=== PATIENT | female | born 1965 | race Caucasian/White ===

== ENCOUNTER 2016-12-03 08:16 | Emergency (ER) | payer MEDICAID ==
[2016-12-03 09:21] VITALS: BP 122/56
[2016-12-03] MEDS ORDERED: Potassium Chloride 20 MEQ Tab.ER PO ONE (09:27)
--- NOTE | 2016-12-03 09:52 | CT ---
INDICATION: Mental status changes, right-sided tingling for two weeks. CT HEAD WITHOUT CONTRAST: Serial contiguous 2.5 and 5 mm sections were obtained through the brain without contrast 12/03/2016 and compared with 2014, revealing no significant interval change, shift of midline structures, ventricular abnormalities, abnormal areas of density, including no evidence of hemorrhage or hematoma. Visualized paranasal sinuses and mastoid air cells were well-aerated. No definite cranial abnormality was seen. IMPRESSION: Normal CT brain. No evidence of an acute intracranial abnormality or significant interval change compared with 01/21/2015 examination. Total exam DLP = 845.81 mGy-cm. MTDD
--- NOTE | 2016-12-03 09:53 | EDM.PDOC ---
[id number] POSSIBLE STOKE Time Seen by Provider: 12/03/16 08:20 Source: Reports: Patient History Limitations: Reports: No limitations - History of Present Illness INITIAL COMMENTS - FREE TEXT/NARRATIVE: 51 years old w f came to the ed this am due due to multiple medical issues, like numbness r arm, moving to the neck, hot flashes, neck numbness, low back pain. Pt stated she does not feel like herself since she had a lumbar puncture in September 2016. Pt is a daily smoker, has occ diarrhea, has a h/o low potassium. She denied trauma. She c/o for a gen rash with itching in the past 4- 5 months for which was seen by her pmd. Vistaril was applied, which did not help. Symptom Onset Date: 09/08/16 Symptom Onset Time: 07:00 Timing/Duration: Reports: Week(s):, Intermittent Location (Neuro Complaint): Reports: generalized Quality (Neuro Complaint): Reports: numbness, tingling, altered sensation Severity: mild Improves with: Reports: None Worsens with: Reports: None Associated symptoms: Reports: headaches, other (occ confusions) - Related Data Allergies/ADRs: Allergies Allergy/AdvReac Type Severity Reaction Status Date / Time metronidazole [From Flagyl] Allergy Fainting Verified 12/03/16 08:27 Home Meds: Home Meds Cyclobenzaprine [Flexeril] 10 mg PO TID PRN 06/17/14 [History] Hydrocodone/Acetaminophen [[place] 10-325] 1 ea PO Q6H PRN 06/17/14 [History] Omeprazole [priLOSEC OTC] 20 mg PO DAILY 06/17/14 [History] Triamterene/Hydrochlorothiazid [Triamterene-HCTZ 37.5-25 MG] 1 tab PO DAILY 06/21 [History] Gabapentin [Gabapentin] 600 mg PO TID PRN 01/21/15 [History] LORazepam 1 mg PO DAILY PRN 12/03/16 [History] Levofloxacin [Levaquin] 500 mg PO Q24H 12/03/16 [History] hydrOXYzine Pamoate [Hydroxyzine Pamoate] 25 mg PO DAILY 12/03/16 [History] Past Medical History Other Cardiovascular History: is on fluid pill Other OB/BYN History: breast implant bilat Social & Family History - Tobacco Use Smoking Status *Q: Current Every Day Smoker Years of Tobacco use: 30 Packs/Tins Daily: 1 Used Tobacco, but Quit: No Second Hand Smoke Exposure: Yes - Caffeine Use Caffeine Use: Reports: Coffee, Soda - Alcohol Use Days Per Week of Alcohol Use: 1 Number of Drinks Per Day: 0 Total Drinks Per Week: 0 - Recreational Drug Use Recreational Drug Use: No ED ROS GENERAL - Review of Systems Review Of Systems: See Below Constitutional: Reports: malaise HEENT: Reports: Other (bad mouthtaste) Respiratory: Reports: No Symptoms Cardiovascular: Reports: No symptoms Endocrine: Reports: no symptoms GI/Abdominal: Reports: No symptoms : Reports: no symptoms Musculoskeletal: Reports: no symptoms Skin: Reports: rash (4 months) Neurological: Reports: Confusion (occ), Numbness, Paresthesia Psychiatric: Reports: No symptoms Hematologic/Lymphatic: Reports: no symptoms Immunologic: Reports: no symptoms ED EXAM, NEURO - Physical Exam Exam: See Below Exam Limited By: No limitations General Appearance: alert, WD/WN, mild distress Eye Exam: bilateral eye: normal inspection Ears: normal external exam, normal canal, hearing grossly normal Nose: normal inspection, normal mucosa, no blood Throat/Mouth: Normal inspection, Normal lips, Normal teeth, Normal gums Head Exam: atraumatic, normocephalic Neck: normal inspection Respiratory/Chest: no respiratory distress, lungs clear, normal breath sounds Cardiovascular: normal peripheral pulses, regular rate, rhythm, no edema GI/Abdominal: normal bowel sounds, soft, non tender, no distention (Female) Exam: Deferred Rectal (Female) Exam: Deferred Neurological: alert, normal mood/affect, normal dorsiflexion Back Exam: normal inspection, full range of motion Extremities: normal inspection, normal range of motion, non-tender, no pedal edema Psychiatric: anxious (pt needed to go for a smoke while waiting for test results ) Skin Exam: Warm, Dry, Intact Course - Vital Signs Text/Narrative:: 51 years old w f came to the ed this am due due to multiple medical issues, like numbness r arm, moving to the neck, hot flashes, neck numbness, low back pain. Pt stated she does not feel like herself since she had a lumbar puncture in September 2016. Pt is a daily smoker, has occ diarrhea, has a h/o low potassium. She denied trauma. She c/o for a gen rash with itching in the past 4- 5 months for which was seen by her pmd. Vistaril was applied, which did not help. PE: No acute physical findings Labs: potassium was 3.3, UDS Pos for opiates, pt is Hydrocodon. Imaging: CT head NAD Impression: Hypokalemia, gen paesthesia, unspecified, can not R/O menopausal symptoms Tx: Potassium 40meq Reexam: improved Plan: D/C home with instructions Last Recorded V/S: Last Vital Signs Temp 36.3 C 12/03/16 08:20 Pulse 91 12/03/16 08:20 Resp 18 12/03/16 08:20 BP 122/56 L 12/03/16 08:20 Pulse Ox 100 12/03/16 08:20 - Orders/Labs/Meds Labs: Laboratory Tests 12/03/16 12/03/16 12/03/16 Range/Units 08:35 08:35 08:45 WBC 13.6 H (4.5-12.0) X10-3/uL RBC 4.80 (3.23-5.20) x10(6)uL Hgb 14.9 (11.5-15.5) g/dL Hct 44.3 (30.0-51.3) % MCV 92.3 (80-96) fL MCH 31.1 (27.7-33.6) pg MCHC 33.6 (32.2-35.4) g/dL RDW 12.9 (11.5-15.5) % Plt Count 273 (125-369) X10(3)uL MPV 8.3 (7.4-10.4) fL Neut % (Auto) 84.7 H (46-82) % Lymph % (Auto) 8.3 L (13-37) % [place] % (Auto) 6.3 (4-12) % Eos % (Auto) 0 L (1.0-5.0) % Baso % (Auto) 0 (0-2) % Neut # (Auto) 11.5 H (1.6-8.3) # Lymph # (Auto) 1.1 (0.6-5.0) # [place] # (Auto) 0.9 (0.0-1.3) # Eos # (Auto) 0.1 (0.0-0.8) # Baso # (Auto) 0.0 (0.0-0.2) # PT (8.7-11.1) INR (0.89-1.13) Sodium (135-145) mmol/L Potassium (3.5-5.3) mmol/L Chloride (100-110) mmol/L Carbon Dioxide (23-29) mmol/L BUN (5-20) mg/dL Creatinine (0.6-1.3) mg/dL Est Cr Clr Drug Dosing Estimated GFR (MDRD) (>60) BUN/Creatinine Ratio (9-20) Glucose (80-116) mg/dL Calcium (8.6-10.2) mg/dL Urine Color Yellow (YELLOW) Urine Appearance Clear (CLEAR) Urine pH 6.0 (5.0-6.5) Ur Specific [place] 1.010 (1.010-1.025) Urine Protein Negative (NEGATIVE) mg/dL Urine Glucose (UA) Normal (NEGATIVE) mg/dL Urine Ketones Negative (NEGATIVE) mg/dL Urine Occult Blood Negative (NEGATIVE) Urine Nitrite Negative (NEGATIVE) Urine Bilirubin Negative (NEGATIVE) Urine Urobilinogen Normal (NEGATIVE) mg/dL Ur Leukocyte Esterase Negative (NEGATIVE) Urine RBC Not seen (0) Urine WBC 0-5 (0) Ur Squamous Epith Cells Few H (NS,R,O) Urine Bacteria Rare H (NS) Urine Opiates Screen Positive H (NEGATIVE) Ur Oxycodone Screen Negative (NEGATIVE) Ur Propoxyphene Screen Negative (NEGATIVE) Ur Barbituates Screen Negative (NEGATIVE) Ur Tricyclics Screen Negative (NEGATIVE) Ur Phencyclidine Scrn Negative (NEGATIVE) Ur Amphetamine Screen Negative (NEGATIVE) Urine MDMA Screen Negative (NEGATIVE) U Benzodiazepines Scrn Negative (NEGATIVE) U Cocaine Metab Screen Negative (NEGATIVE) U Marijuana (THC) Screen Negative (NEGATIVE) 12/03/16 12/03/16 Range/Units 08:45 08:45 WBC (4.5-12.0) X10-3/uL RBC (3.23-5.20) x10(6)uL Hgb (11.5-15.5) g/dL Hct (30.0-51.3) % MCV (80-96) fL MCH (27.7-33.6) pg MCHC (32.2-35.4) g/dL RDW (11.5-15.5) % Plt Count (125-369) X10(3)uL MPV (7.4-10.4) fL Neut % (Auto) (46-82) % Lymph % (Auto) (13-37) % [place] % (Auto) (4-12) % Eos % (Auto) (1.0-5.0) % Baso % (Auto) (0-2) % Neut # (Auto) (1.6-8.3) # Lymph # (Auto) (0.6-5.0) # [place] # (Auto) (0.0-1.3) # Eos # (Auto) (0.0-0.8) # Baso # (Auto) (0.0-0.2) # PT 10.5 (8.7-11.1) INR 1.04 (0.89-1.13) Sodium 138 (135-145) mmol/L Potassium 3.3 L (3.5-5.3) mmol/L Chloride 101 (100-110) mmol/L Carbon Dioxide 33 H (23-29) mmol/L BUN 9 (5-20) mg/dL Creatinine 0.8 (0.6-1.3) mg/dL Est Cr Clr Drug Dosing TNP Estimated GFR (MDRD) > 60 (>60) BUN/Creatinine Ratio 11.3 (9-20) Glucose 133 H (80-116) mg/dL Calcium 9.2 (8.6-10.2) mg/dL Urine Color (YELLOW) Urine Appearance (CLEAR) Urine pH (5.0-6.5) Ur Specific [place] (1.010-1.025) Urine Protein (NEGATIVE) mg/dL Urine Glucose (UA) (NEGATIVE) mg/dL Urine Ketones (NEGATIVE) mg/dL Urine Occult Blood (NEGATIVE) Urine Nitrite (NEGATIVE) Urine Bilirubin (NEGATIVE) Urine Urobilinogen (NEGATIVE) mg/dL Ur Leukocyte Esterase (NEGATIVE) Urine RBC (0) Urine WBC (0) Ur Squamous Epith Cells (NS,R,O) Urine Bacteria (NS) Urine Opiates Screen (NEGATIVE) Ur Oxycodone Screen (NEGATIVE) Ur Propoxyphene Screen (NEGATIVE) Ur Barbituates Screen (NEGATIVE) Ur Tricyclics Screen (NEGATIVE) Ur Phencyclidine Scrn (NEGATIVE) Ur Amphetamine Screen (NEGATIVE) Urine MDMA Screen (NEGATIVE) U Benzodiazepines Scrn (NEGATIVE) U Cocaine Metab Screen (NEGATIVE) U Marijuana (THC) Screen (NEGATIVE) Meds: Medications Discontinued Medications Generic Name Dose Route Start Last Admin Trade Name Freq PRN Reason Stop Dose Admin Potassium Chloride 40 meq 12/03/16 09:27 12/03/16 09:48 Klor-Con M20 PO 12/03/16 09:28 40 meq ONETIME ONE Administration Departure - Departure Time of Disposition: 10:03 Disposition: Home, Self-Care 01 Condition: good Clinical Impression: Hypokalemia Referrals: Maricel Reagan MD [Primary Care Provider] - Forms: ED Department Discharge Additional Instructions: Please take 40meq at 2 pm, please get the potassium level checked on Friday. Please f/u with neurology and or PMD. Please come back to the ed if your symptoms acutely worsen.
== END 2016-12-03 10:10 | disposition home or self-care (01) ==
LOC: FB.ED 08:16
DX: E87.6 Hypokalemia (principal); R20.9 Unspecified disturbances of skin sensation; F17.210 Nicotine dependence, cigarettes, uncomplicated; Z88.1 Allergy status to other antibiotic agents; Z79.899 Other long term (current) drug therapy
CPT/HCPCS: 36415; 70450; 80048; 80305; 81001; 85025; 85610; 99284; A9270

== ENCOUNTER 2016-12-12 07:30 | Day surgery (SDC) | payer MEDICAID ==
[~2016-12-12 07:30] MED LIST: Lactated Ringers 1,000 ML IV SCH; Sodium Chloride 0.9% 10 ML Syringe FLUSH PRN
--- NOTE | 2016-12-12 09:48 | PCM.HPR ---
H & P Addendum review - H & P Addendum Review Date of Original H & P: 12/12/16 Date Reviewed: 12/12/16 Time Reviewed: 09:30 Patient was examined: No Changes (H&P from 12/06 reviewed. Cardiac and Pulm ROS was neg. Pt does experience what I believe is chest tightness from her anxiety. EKG form last month and today is normal. Lungs are clear, Heart is RRR. She is cleared to proceed with procedure)
[2016-12-12] MEDS ORDERED: Midazolam 1 MG/ML 2 ML SDV IV ONE (09:50)
[2016-12-12] MEDS ORDERED: Propofol 200 MG/20 ML SDV IV ONE (09:50)
[2016-12-12] MEDS ORDERED: Lidocaine 2% 100 MG/5 ML Syringe IVPUSH ONE (09:50)
--- NOTE | 2016-12-12 10:32 | PCM.OPNOTE ---
- General Post-Op/Procedure Note Date of Surgery/Procedure: 12/12/16 Operative Procedure(s): EGD and Colonoscopy Findings: Both normal Pre Op Diagnosis: See H&P Post-Op Diagnosis: Same Anesthesia Technique: KARIN Primary Surgeon: Dami Epps Anesthesia Provider: Prasad Pal Complications: None Condition: Good
[2016-12-12 10:56] VITALS: BP 126/91
--- NOTE | 2016-12-12 16:40 | OR ---
DATE OF OPERATION: 12/12/2016 SURGEON: Dami Epps MD PREOPERATIVE DIAGNOSES: 1. Epigastric abdominal pain. 2. History of peptic ulcer disease. 3. Chronic diarrhea. POSTOPERATIVE DIAGNOSIS: 1. Normal esophagogastroduodenoscopy. 2. Normal colonoscopy. PROCEDURE: 1. Esophagogastroduodenoscopy. 2. Colonoscopy. ANESTHESIA: IV sedation. DESCRIPTION OF PROCEDURE: The patient was brought to the procedure room, where anesthetic gargle was given and IV sedation administered. Oral bite block was placed, and the upper endoscope advanced into the esophagus under direct vision without difficulty. The scope was advanced to the third portion of the duodenum. The duodenum and pylorus were normal. Antrum and body of the stomach were normal. Retroflexion reveals a loose lower esophageal sphincter. No hiatal hernia seen. No mucosal abnormalities or source of pain was identified. Air was withdrawn from the stomach, and the scope withdrawn through the esophagus, which appears normal. The patient tolerated this portion of the procedure well. Next, colonoscopy was performed after digital rectal exam was done, which was normal. The colonoscope was inserted and advanced to the level of the ileocolonic anastomosis without difficulty. The prep was good, and surfaces were well visualized. Upon withdrawing the scope, the transverse, descending, and sigmoid colon were all normal. Rectum on retroflexion was normal. Again, no source of pain was identified. Air was removed, and the scope withdrawn. The patient tolerated the procedure well and returned to recovery in stable condition. /[id number] NORI/ISMAEL CC: SHANNAN MONTESINOS DNP, [facility]
== END 2016-12-12 11:30 | disposition home or self-care (01) ==
LOC: FB.SDS 07:30
PROVIDERS: ATTEND Surgery
PROC: 0DJ08ZZ Inspection of Upper Intestinal Tract, Via Natural or Artificial Opening Endoscopic (ICD-10-PCS; principal; 2016-12-12)
PROC: 0DJD8ZZ Inspection of Lower Intestinal Tract, Via Natural or Artificial Opening Endoscopic (ICD-10-PCS; 2016-12-12)
DX: R10.13 Epigastric pain (principal); K52.9 Noninfective gastroenteritis and colitis, unspecified; F41.9 Anxiety disorder, unspecified; F34.1 Dysthymic disorder; Z79.899 Other long term (current) drug therapy; Z88.1 Allergy status to other antibiotic agents
CPT/HCPCS: 43235; 45378; 81025; 93005; J7120; J2250; J2704

== ENCOUNTER 2022-09-10 07:49 | Day surgery (SDC) | payer MEDICAID ==
[2022-09-10] MEDS ORDERED: Propofol 200 MG/20 ML SDV IV ONE (07:50)
[2022-09-10] MEDS ORDERED: Sodium Chloride 0.9% 10 ML Syringe FLUSH PRN (08:30)
[2022-09-10] MEDS: Lactated Ringers 1,000 ML IV SCH (08:50)
[2022-09-10 10:28] VITALS: BP 150/86; PULSE 72
== END 2022-09-10 10:20 | disposition home or self-care (01) ==
LOC: FB.SDS 07:49
PROVIDERS: ATTEND Surgery
DX: K21.00 Gastro-esophageal reflux disease with esophagitis, without bleeding (principal); K29.50 Unspecified chronic gastritis without bleeding; K31.89 Other diseases of stomach and duodenum; Z88.0 Allergy status to penicillin; Z88.1 Allergy status to other antibiotic agents; Z88.8 Allergy status to other drugs, medicaments and biological substances
CPT/HCPCS: 00731; 43239; 88305; 88342; J2704; J7120

== ENCOUNTER 2025-08-03 21:08 | Emergency (ER) | payer MEDICAID ==
[2025-08-03] MEDS: LORazepam 2 MG/ML SDV IM ONE (21:22)
[2025-08-03 21:32] LABS: BASOPHILS ABSOLUTE AUTO 0.1 x10-3/uL (0.0-0.1); BASOPHILS PERCENT AUTO 0.8 % (0.2-1.5); EOSINOPHILS ABSOLUTE AUTO 0.1 x10-3/uL (0.0-0.8); EOSINOPHILS PERCENT AUTO 1.3 % (0.6-8.1); LYMPHOCYTES ABSOLUTE AUTO 1.6 x10-3/uL (1.0-4.4); LYMPHOCYTES PERCENT AUTO 20.2 % (18.4-52.1); MEAN PLATELET VOLUME 7.2 fL (7.1-12.4); MONOCYTES ABSOLUTE AUTO 0.7 x10-3/uL (0.3-1.0); MONOCYTES PERCENT AUTO 9.7 % (4.4-15.7); NEUTROPHILS ABSOLUTE AUTO 5.3 x10-3/uL (1.5-6.3); NEUTROPHILS PERCENT AUTO 68.0 % (30.8-76.2); PLATELET COUNT,PLT 244 x10(3)uL (151-488); RED BLOOD CELL COUNT 4.58 x10(6)uL (3.60-5.20); RED CELL DISTRIBUTION WIDTH 13.7 % (12.3-16.5); WHITE BLOOD CELL COUNT,WBC 7.7 x10-3/uL (3.0-10.3)
[2025-08-03 21:41] LABS: A/G RATIO 1.0; ALANINE AMINOTRANSFERASE,ALT 21 U/L (12-36); ASPARTATE AMNIOTRANSFERASE,AST 17 IU/L (5-25); BILIRUBIN TOTAL 0.6 mg/dL (0.1-1.3); BLOOD UREA NITROGEN,BUN 7 mg/dL (7-18); CARBON DIOXIDE,CO2 33 mmol/L (21-32); CHLORIDE,CL 103 mmol/L (100-110); CREATININE 0.7 mg/dL (0.55-1.02); ESTIMATED GFR 100 mL/min (>60); GLUCOSE RANDOM 86 mg/dL (80-116); PROTEIN TOTAL,TP 7.0 g/dL (6.0-8.0); SODIUM,NA 144 mmol/L (135-145)
[2025-08-03 21:44] LABS: LACTIC ACID 1.4 mmol/L (0.4-2.0); POTASSIUM,K 2.8 mmol/L (3.5-5.3)
[2025-08-03] MEDS: Potassium Chloride 20 MEQ Tab.ER PO ONE (22:05)
[2025-08-03 22:21] VITALS: BP 168/105; PULSE 67
== END 2025-08-03 22:20 | disposition home or self-care (01) ==
LOC: FB.ED 21:08
DX: J40 Bronchitis, not specified as acute or chronic (principal); F41.9 Anxiety disorder, unspecified; E87.6 Hypokalemia; F17.200 Nicotine dependence, unspecified, uncomplicated; Z88.0 Allergy status to penicillin; Z88.1 Allergy status to other antibiotic agents; Z88.8 Allergy status to other drugs, medicaments and biological substances; Z79.899 Other long term (current) drug therapy; Z90.49 Acquired absence of other specified parts of digestive tract
CPT/HCPCS: 36415; 80053; 83605; 85025; 86140; 96372; 99284; A9270; J2060